=== PATIENT | female | born 1995 | race Asian ===

== ENCOUNTER → 2016-08-19 14:35 | Emergency (ER) | payer OTHER ==
[~2016-08-19 14:35] MED LIST: Ketorolac INJ* 30 MG/ML 1 ML VIAL IV ONE; NS 0.9% 1000 ML* 1,000 ML IV ONE
--- NOTE | 2016-08-19 15:58 | ED ---
Neck Pain - HPI Summary HPI Summary: Patient presents with two days of neck pain that began without known incident or trauma. She has had a cold for two weeks and developed an intermittent subjective fever two days ago as well. She took some cold medicine and a hot shower that relieved her symptoms but they returned later in the day. She went to a "formal" at [employer] last night and has been studying for finals, but finds her neck discomfort is getting in the way of her studying since she needs to lean her head forward while reading. The neck is point tender on the muscles of the left side at the base of the skull. She is able to move the neck in all directions without pain. She has had an intermittent headache she attributes to her neck pain. She has been eating, drinking, and sleeping at baseline. - History of Current Complaint Chief Complaint: EDNeckComplaint Stated Complaint: NECK AND BACK PAIN Time Seen by Provider: 08/19/16 15:05 Hx Obtained From: Patient Onset/Duration Of Injury/Symptoms: Days Mechanism Of Injury: No Known Trauma Timing: Constant Onset/Duration: Gradual Onset, Started days ago, Still Present Severity Initially: Mild Severity Currently: Moderate Pain Intensity: 5 Location: Discrete At: - left posterior neck Character: Aching Aggravating Factors: Movement Alleviating Factors: Heat Associated Signs & Symptoms: Positive: Fever - subjective, Headache - Risk Factors Meningitis Risk Factors: Negative - Allergies/Home Medications Allergies/Adverse Reactions: Allergies Allergy/AdvReac Type Severity Reaction Status Date / Time No Known Allergies Allergy Verified 08/19/16 14:50 PMH/Surg Hx/FS Hx/Imm Hx Previously Healthy: Yes Infectious Disease History: No Infectious Disease History: Denies: Traveled Outside the [place] in Last 30 Days - Family History Known Family History: Positive: None - Social History Occupation: Student Lives: Alone Alcohol Use: Weekly Substance Use Type: Reports: None Smoking Status (MU): Never Smoked Tobacco Review of Systems Positive: Chills. Negative: Fever - subjective Negative: Photophobia, Blurred Vision, Diplopia Negative: Sore Throat Negative: Chest Pain Negative: Cough Positive: no symptoms reported Positive: Myalgia - left posterior neck Negative: Bruising Positive: Headache - intermittent. Negative: Weakness, Paresthesia, Numbness All Other Systems Reviewed And Are Negative: Yes Physical Exam Triage Information Reviewed: Yes Vital Signs On Initial Exam: Initial Vitals Temp Pulse Resp BP Pulse Ox 98.7 F 110 14 110/70 100 08/19/16 14:45 08/19/16 14:45 08/19/16 14:45 08/19/16 14:45 08/19/16 14:45 Vital Signs Reviewed: Yes Appearance: Positive: Well-Appearing, No Pain Distress, Thin Skin: Positive: Warm, Skin Color Reflects Adequate Perfusion, Dry, Soft Head/Face: Positive: Normal Head/Face Inspection Eyes: Positive: EOMI, MARQUISE, Conjunctiva Clear ENT: Positive: Hearing grossly normal, Pharynx normal, TMs normal Neck: Positive: Supple, No Lymphadenopathy, Tenderness @ - TTP left posterior trapezius at base of skull Respiratory/Lung Sounds: Positive: Clear to Auscultation, Breath Sounds Present Cardiovascular: Positive: Tachycardia Abdomen Description: Positive: Nontender, Soft. Negative: CVA Tenderness (R), CVA Tenderness (L) Bowel Sounds: Positive: Present Musculoskeletal: Positive: Strength/ROM Intact - with discomfort with movement, Pain @ - TTP left posterior trapezius at base of skull. Negative: Edema Left, Edema Right Neurological: Positive: Sensory/Motor Intact, Alert, Oriented to Person Place, Time - no altered mental status, CN Intact II-III, NV Bundle Intact Distally, Normal Gait, Other - negative Kernig's or Brudzinski's signs. Negative: Babinski Left, Babinski Right, Cerebellar Dysfunction, Disoriented Psychiatric: Positive: Affect/Mood Appropriate AVPU Assessment: Alert Diagnostics - Vital Signs Vital Signs Temp Pulse Resp BP Pulse Ox 08/19/16 15:03 100.2 F 08/19/16 14:48 98.7 F 111 15 110/70 100 08/19/16 14:45 98.7 F 110 14 110/70 100 - Laboratory Result Diagrams: 08/19/16 15:40 08/19/16 15:40 Lab Statement: Any lab studies that have been ordered have been reviewed, and results considered in the medical decision making process. Re-Evaluation - Re-Evaluation First Eval Re-Evaluation Time: 17:15 Change: Improved - patient moving neck more easily with decreased discomfort Neck Course/Dx - Course Course Of Treatment: Patient's case was reviewed with Dr. Colon and the patient. She will follow-up with Hank or return to the emergency department if symptoms worsen. - Diagnoses Differential Dx/HQI/PQRI: Positive: Adenitis, Cervical Fracture, Dislocation, Dystonia, Meningitis, Sprain, Strain, Torticollis, Trauma Provider Diagnoses: Neck pain - Physician Notifications Discussed Care Of Patient With: Dr. Colon, ED attending. Discharge - Discharge Plan Condition: Stable Disposition: HOME Patient Education Materials: Acute Neck Pain (ED) Forms: *School Release [facility] - Additional Instructions: Please use Ibuprofen 600mg three times daily with meals beginning tomorrow evening for the next 3-5 days in combination with rest and heat for your neck. Follow-up with [facility] if you have concerns. Return to the emergency department if symptoms worsen with increased pain, temperature of 100.4 or higher, etc.
[2016-08-19 15:59] LABS: Hematocrit 40 % (35-47); Hemoglobin 13.3 g/dl (12.0-16.0); Mean Corpuscular HGB Conc 33 g/dl (31-36); Mean Corpuscular Hemoglobin 32 pg (27-31); Mean Corpuscular Volume 96 fL (80-97); Mean Platelet Volume 8 um3 (7.4-10.4); Red Blood Count 4.18 10^6/ul (4.0-5.4); Red Cell Distribution Width 13 % (10.5-15); White Blood Count 9.5 10^3/ul (3.5-10.8)
[2016-08-19 16:11] LABS: Albumin 4.3 g/dL (3.2-5.2); BUN/Creatinine Ratio 21.4 (8-20); C Reactive Protein 49.03 mg/L (< 5.00); Calcium 9.3 mg/dL (8.6-10.3); EGFR African American 177.5 (>60); Potassium 3.8 mmol/L (3.5-5.0); Total Bilirubin 0.4 mg/dL (0.2-1.0); Total Protein 7.3 g/dL (6.4-8.9)
[2016-08-19 16:26] LABS: Mono Internal Control QC Line Present
[2016-08-19 17:01] LABS: Urine Bacteria Absent (Absent); Urine Bilirubin Negative (Negative); Urine Glucose Negative (Negative); Urine Nitrite Negative (Negative)
[2016-08-19 17:19] VITALS: BP 104/72
== END | disposition home or self-care (01) ==
LOC: ED 14:35
DX: M54.2 Cervicalgia (principal); R50.9 Fever, unspecified; R51 Headache; M79.1 Myalgia
CPT/HCPCS: 36415; 80053; 81003; 81015; 85025; 86140; 86308; 87040; 87502; 87651; 96374; 99282; J1885

== ENCOUNTER 2018-02-04 20:14 | Inpatient (IN) | payer OTHER ==
[2018-02-04] MEDS ORDERED: NS 0.9% 1000 ML* 1,000 ML IV ONE (21:35)
[2018-02-04] MEDS ORDERED: Ondansetron INJ* 2 MG/ML VIAL IV ONE (21:36)
[2018-02-04] MEDS ORDERED: Morphine INJ* 4 MG/ML 1 ML SYRINGE (NEW SYRINGE VERSION) IV ONE (21:36)
[2018-02-04 21:44] LABS: ABS Basophils 0.1 10^3/ul (0-0.2); ABS Eosinophils 0.1 10^3/ul (0-0.6); ABS Lymphocytes 1.9 10^3/ul (1.0-4.8); ABS Monocytes 0.4 10^3/ul (0-0.8); ABS Neutrophils 9.1 10^3/ul (1.5-7.7); ABS Nucleated RBC 0 10^3/ul; Eosinophil % 1.1 % (0-6); Hematocrit 44 % (35-47); Hemoglobin 14.4 g/dl (12.0-16.0); Lymphocyte % 16.3 % (25-47); Mean Corpuscular HGB Conc 33 g/dl (31-36); Mean Corpuscular Hemoglobin 32 pg (27-31); Mean Corpuscular Volume 96 fL (80-97); Mean Platelet Volume 7.9 um3 (7.4-10.4); Nucleated Red Blood Cells % 0.1; Platelet Count 267 10^3/ul (150-450); Red Blood Count 4.56 10^6/ul (4.00-5.40); Red Cell Distribution Width 13 % (10.5-15); White Blood Count 11.6 10^3/ul (3.5-10.8)
[2018-02-04 21:53] LABS: INR 0.98 (0.77-1.02)
[2018-02-04 22:02] LABS: EGFR Non-African American 119.3 (>60)
--- NOTE | 2018-02-04 22:27 | ED ---
Abdominal Pain/Female - HPI Summary HPI Summary: A 22 y/o female presents to the ED c/o abd pain since earlier today, 2017. She denies vomiting, nausea and diarrhea. She states that she has not had an appendectomy and she does not drink alcohol, smoke or use drugs. - History of Current Complaint Chief Complaint: EDAbdPain Stated Complaint: ABD PAIN Time Seen by Provider: 02/04/18 21:16 Hx Obtained From: Patient Onset/Duration: Sudden Onset Timing: Constant Severity Initially: Moderate Severity Currently: Moderate Pain Intensity: 5 Pain Scale Used: 0-10 Numeric Location: Discrete At: RLQ, Umbilical Allergies/Adverse Reactions: Allergies Allergy/AdvReac Type Severity Reaction Status Date / Time No Known Allergies Allergy Verified 02/04/18 21:19 Home Medications: Home Medications NK [No Home Medications Reported] 02/04/18 [History Confirmed 02/04/18] PMH/Surg Hx/FS Hx/Imm Hx History: Denies: Hx Kidney Stones Sensory History: Denies: Hx Deafness Opthamlomology History: Denies: Hx Legally Blind - Immunization History Date of Tetanus Vaccine: utd Date of Influenza Vaccine: none Infectious Disease History: No Infectious Disease History: Denies: Traveled Outside the [place] in Last 30 Days - Family History Known Family History: Negative: Blood Disorder - Social History Alcohol Use: None Substance Use Type: Reports: None Smoking Status (MU): Never Smoked Tobacco Review of Systems Negative: Fever Positive: Abdominal Pain. Negative: Vomiting, Diarrhea, Nausea All Other Systems Reviewed And Are Negative: Yes Physical Exam - Summary Physical Exam Summary: Appearance: Well appearing, no pain distress Skin: warm, dry, reflects adequate perfusion Head/face: normal Eyes: EOMI, MARQUISE ENT: normal Neck: supple, non-tender Respiratory: CTA, breath sounds present Cardiovascular: RRR, pulses symmetrical Abdomen: Tenderness in the umbilical area and RLQ Bowel: present Musculoskeletal: normal, strength/ROM intact Neuro: normal, sensory motor intact, A&Ox3 Triage Information Reviewed: Yes Vital Signs On Initial Exam: Initial Vitals Temp Pulse Resp BP Pulse Ox 98.7 F 91 16 128/71 98 02/04/18 20:15 02/04/18 20:15 02/04/18 20:15 02/04/18 20:15 02/04/18 20:15 Vital Signs Reviewed: Yes Diagnostics - Vital Signs Vital Signs Temp Pulse Resp BP Pulse Ox 02/04/18 22:00 82 97 02/04/18 21:57 57 92/46 97 02/04/18 21:55 50 83/40 99 02/04/18 21:54 48 71/47 99 02/04/18 21:53 52 76/37 100 02/04/18 21:25 83 96 02/04/18 21:24 84 124/76 97 02/04/18 20:15 98.7 F 91 16 128/71 98 - Laboratory Lab Results: Lab Results 02/04/18 02/04/18 02/04/18 Range/Units 21:36 21:36 21:36 WBC 11.6 H (3.5-10.8) 10^3/ul RBC 4.56 (4.00-5.40) 10^6/ul Hgb 14.4 (12.0-16.0) g/dl Hct 44 (35-47) % MCV 96 (80-97) fL MCH 32 H (27-31) pg MCHC 33 (31-36) g/dl RDW 13 (10.5-15) % Plt Count 267 (150-450) 10^3/ul MPV 7.9 (7.4-10.4) um3 Neut % (Auto) 78.5 (38-83) % Lymph % (Auto) 16.3 L (25-47) % [place] % (Auto) 3.6 (0-7) % Eos % (Auto) 1.1 (0-6) % Baso % (Auto) 0.5 (0-2) % Absolute Neuts (auto) 9.1 H (1.5-7.7) 10^3/ul Absolute Lymphs (auto) 1.9 (1.0-4.8) 10^3/ul Absolute Monos (auto) 0.4 (0-0.8) 10^3/ul Absolute Eos (auto) 0.1 (0-0.6) 10^3/ul Absolute Basos (auto) 0.1 (0-0.2) 10^3/ul Absolute Nucleated RBC 0 10^3/ul Nucleated RBC % 0.1 INR (Anticoag Therapy) 0.98 (0.77-1.02) APTT 34.2 (26.0-36.3) seconds Sodium 139 (135-145) mmol/L Potassium 3.7 (3.5-5.0) mmol/L Chloride 107 (101-111) mmol/L Carbon Dioxide 27 (22-32) mmol/L Anion Gap 5 (2-11) mmol/L BUN 13 (6-24) mg/dL Creatinine 0.63 (0.51-0.95) mg/dL Est GFR ( Amer) 144.3 (>60) Est GFR (Non-Af Amer) 119.3 (>60) BUN/Creatinine Ratio 20.6 H (8-20) Glucose 104 H (70-100) mg/dL Calcium 9.2 (8.6-10.3) mg/dL Total Bilirubin 0.50 (0.2-1.0) mg/dL AST 14 (13-39) U/L ALT 11 (7-52) U/L Alkaline Phosphatase 48 (34-104) U/L Total Protein 7.1 (6.4-8.9) g/dL Albumin 4.3 (3.2-5.2) g/dL Globulin 2.8 (2-4) g/dL Albumin/Globulin Ratio 1.5 (1-3) Lipase Pending Beta HCG, Quant < 0.60 mIU/mL Result Diagrams: 02/04/18 21:36 02/04/18 21:36 Lab Statement: Any lab studies that have been ordered have been reviewed, and results considered in the medical decision making process. - CT Abdomen/Pelvis CT Interpretation Completed By: Radiologist - 1. Acute interstitial edematous pancreatitis. Modified CT severity index = 2. 2. Right ovarian cyst. ACR White Paper guidelines (Veliz, et. al. JACR 2013; 10(9):675-681) suggest that no follow-up is necessary. This report has been reviewed by the ED physician. Re-Evaluation - Re-Evaluation First Eval Re-Evaluation Time: 01:15 Change: Unchanged Comment: Explained to patient that she has pancreatitis. Abdominal Pain Fem Course/Dx - Course Course Of Treatment: 22 y/o female presents to the ED c/o abd pain since earlier today, 02/04/2018. Her PE revealed tenderness in the umbilical and RLQ region. Her abdomen/pelvis CT showed:1. Acute interstitial edematous pancreatitis. Modified CT severity index = 2. 2. Right ovarian cyst. ACR White Paper guidelines (Veliz, et. al. JACR 2013; 10(9):675-681) suggest that no follow-up is necessary. Dx: pancreatitis. She will be admitted to Dr. Sal. Pt is agreeable to this plan. - Diagnoses Differential Diagnosis: Positive: Appendicitis, Diverticulitis, Pancreatitis, Renal Colic Provider Diagnoses: Pancreatitis - Provider Notifications Discussed Care Of Patient With: Quiana Sal Time Discussed With Above Provider: 01:10 Instructed by Provider To: Admit As Inpatient Discharge - Sign-Out/Discharge Documenting (check all that apply): Patient Departure - Admit - Discharge Plan Condition: Fair Disposition: ADMITTED TO [facility] Referrals: [facility] [Primary Care Provider] - - Billing Disposition and Condition Condition: FAIR Disposition: Admitted to [facility] - Attestation Statements Document Initiated by Scribe: Yes Documenting Scribe: Chris Finley Provider For Whom Eileen is Documenting (Include Credential): Huseyin You MD Scribe Attestation: Chris Patten, scribed for Huseyin You MD on 02/05/18 at 0152. Scribe Documentation Reviewed: Yes Provider Attestation: The documentation as recorded by the Chris schafer accurately reflects the service I personally performed and the decisions made by , Huseyin You MD
[2018-02-05] MEDS ORDERED: Iohexol 300* (CONTRAST) 10 ML SDV IV ONE (00:01)
[2018-02-05 00:38] LABS: Urine Appearance Cloudy; Urine Blood Negative (Negative); Urine Color Yellow; Urine Ketones 1+ (Negative); Urine Protein Negative (Negative); Urine Specific Gravity 1.009 (1.010-1.030); Urine Urobilinogen Negative (Negative)
[2018-02-05] MEDS ORDERED: Ondansetron INJ* 2 MG/ML VIAL IV PRN (01:23)
[2018-02-05] MEDS ORDERED: Morphine INJ* 4 MG/ML 1 ML SYRINGE (NEW SYRINGE VERSION) IV PRN (01:23)
--- NOTE | 2018-02-05 01:31 | RAD ---
EXAM: CT Abdomen and Pelvis With Intravenous Contrast EXAM DATE/TIME: 02/05/2018 1:01 AM CLINICAL HISTORY: 22 years old, female; Pain; Abdominal pain; Generalized; Additional info: RT low quad tend R/O appendicitis TECHNIQUE: Axial computed tomography images of the abdomen and pelvis with intravenous contrast. All CT scans at this facility use at least one of these dose optimization techniques: automated exposure control; mA and/or kV adjustment per patient size (includes targeted exams where dose is matched to clinical indication); or iterative reconstruction. Coronal and sagittal reformatted images were created and reviewed. CONTRAST: 57 ml of OMNI administered intravenously. COMPARISON: No relevant prior studies available. FINDINGS: Lower thorax: No acute findings. ABDOMEN: Liver: Normal. No mass. Gallbladder and bile ducts: Normal. No calcified stones. No ductal dilation. Pancreas: Extensive peripancreatic edema extending into the lesser sac and along the bilateral pararenal fascia, left greater than right. No main ductal dilation. Normal parenchymal enhancement. No encapsulated peripancreatic fluid collections. Spleen: Normal. No splenomegaly. Adrenals: Normal. No mass. Kidneys and ureters: No renal solid cortical lesions, calculi, or pelvocaliectasis. Stomach and bowel: Incompletely distended grossly normal stomach. Normal caliber small bowel. No colonic masses or segmental wall thickening. Appendix: No evidence of appendicitis. PELVIS: Bladder: Thin-walled bladder with no focal nodularity, perivesicular stranding, or calcifications. Reproductive: Large right ovarian cyst measures 4.7 cm (series 2, image 65). Normal uterus and left ovary. ABDOMEN and PELVIS: Intraperitoneal space: Normal. No free air. No significant fluid collection. Bones/joints: The low curvature of the thoracolumbar spine. No fracture or dislocation. Joint spaces are preserved. No osseous lesions or erosions. Soft tissues: Normal. No hernia. Vasculature: Normal caliber aorta with no evidence of dissection or rupture. Patent IVC. Lymph nodes: Normal. No enlarged lymph nodes. IMPRESSION: 1. Acute interstitial edematous pancreatitis. Modified CT severity index = 2. 2. Right ovarian cyst. ACR White Paper guidelines (Jose Alfredo, et. al. JACR 2013; 10(9):675-681) suggest that no follow-up is necessary. To contact [facility] with a general question: [facility] - [phone] For direct physician to physician contact: Physician Hotline - [phone] [facility] (ad Facility ID #[id number])
[2018-02-05] MEDS: Morphine VIAL* 4 MG/ML VIAL (1 ml vial) IV PRN ×2 (03:21→18:29)
--- NOTE | 2018-02-05 03:52 | HP ---
CC: [facility] * HISTORY AND PHYSICAL: DATE OF ADMISSION: 02/05/18 PRIMARY CARE PROVIDER: [facility]. CHIEF COMPLAINT: Epigastric pain. HISTORY OF PRESENT ILLNESS: Ms. Diggs is a 22-year-old [place] student who presents to the emergency room with complaints of relatively sudden onset of epigastric pain. The patient states that in general, she has been in her normal state of health through the morning. She states that she took a couple bites of her lunch and following this, she developed fairly significant epigastric pain. The patient states that she has not really been nauseous with this. She rates the pain to be 5 to 6/10 after having pain medications in the emergency room. She describes the pain as being sharp in nature. It does not radiate. The patient does state that she has had symptoms similar to this in the past and had been diagnosed with pancreatitis in the past. She does not have any further information regarding this. She does state that she has not had any pain with eating any fatty foods. She does not take any medication. She does not use any herbal supplements or vitamins. She does admit to drinking alcohol this past Saturday. When I asked her about this, she is quite hesitant to answer this question. She states that she drank a small amount and does not elaborate any further. PAST MEDICAL HISTORY: None. PAST SURGICAL HISTORY: None. MEDICATIONS: None. ALLERGIES: None. FAMILY HISTORY: Mom and dad are both 50 and healthy. SOCIAL HISTORY: The patient does not smoke. She drinks alcohol on occasion. She is a [place] student studying [employer]. She is not . She has no children. She indicates that her mom would be her healthcare proxy. She is from [place] originally. REVIEW OF SYSTEMS: A complete 11-system review of systems is obtained. Pertinent positives and negatives are as per HPI and otherwise negative. PHYSICAL EXAMINATION GENERAL: The patient is a well-developed, thin young female, seen sitting up in the stretcher, in no acute distress. VITAL SIGNS: Blood pressure 126/83, pulse 97, respirations 18, temp 98.7, O2 sat 100% on room air. HEENT: Pupils are equal and round. Extraocular muscles are intact. Oropharynx is clear. Oral mucosa is moist. There is no submandibular, cervical , or supraclavicular adenopathy. Thyroid is not enlarged. No thyroid nodules are noted. PULMONARY: Lungs are clear to auscultation bilaterally. CARDIAC: Normal S1, S2. Heart rate is slightly tachycardic, but regular. There is no lower extremity edema. ABDOMEN: Bowel sounds are present. Abdomen is soft, nondistended. She is mildly tender to palpation in the epigastrium. MUSCULOSKELETAL: There is no cyanosis or clubbing of the digits. There is full active range of motion of all 4 extremities. NEURO: Cranial nerves II through XII are grossly intact. Sensation is intact to light touch throughout. Strength is 5/5 and symmetric to both upper and lower extremities bilaterally. SKIN: Warm and dry. There are no rashes. PSYCH: The patient is alert. She is oriented x3. Affect appears appropriate. LABORATORY DATA/DIAGNOSTIC STUDIES: WBC 11.6, hemoglobin 14.4, hematocrit 44, platelets 267. Sodium 139, potassium 3.7, chloride 107, CO2 27, BUN 13, creatinine 0.63, glucose 104. Calcium 9.2, albumin 4.3, AST 14, ALT 11, alk phos 48, bilirubin 0.5. INR 0.98. Lipase 5906. CT abdomen and pelvis, acute interstitial edematous pancreatitis. Right ovarian cyst. ASSESSMENT AND PLAN: Ms. Diggs is a 22-year-old [place] student who has no significant past medical history who presents to the emergency room with sudden onset of moderately severe epigastric pain around the lunch on the day prior to admission. 1. Pancreatitis. Because the pancreatitis is not completely clear, I do question if the patient has been 100% truthful about her alcohol intake as she seems somewhat hesitant to answer this question for me. I believe alcohol intake is high on the differential for the cause of her pancreatitis. She is not on any medications and denies use of any herbal supplements. Perhaps, her pancreatitis could be due to infectious source such as a virus, but this seems less likely. The patient does report having been diagnosed with pancreatitis in the past. Perhaps, she has a genetic risk for developing pancreatitis. I do not believe gallstones as a cause because CT scan did not reveal any evidence of sludge, stones, or bile duct dilation. Triglyceride level is pending at this time. The patient will be admitted and started on normal saline at 125 mL per hour. Her pain at this point is not so severe that she does not want to try to eat. We will place her on a clear liquid diet for now. If eating the clears exacerbates the pain, this will need to be backed down. The patient will have morphine available for pain and Zofran for nausea. 2. DVT prophylaxis. According to the Adult Thrombosis Prophylaxis Risk Factor Assessment Guide, the patient has a total risk factor score of 0, making her low risk. Ambulation will be utilized as DVT prophylaxis. 3. Code status is full. TIME SPENT: 50 minutes were spent admitting this patient. [id number]/[facility] #: [id number] STEPHANIE
[2018-02-05] MEDS ORDERED: PROCHLORPERAZINE INJ 5 MG/ML 2 ML VIAL IV PRN (10:12)
--- NOTE | 2018-02-05 10:19 | PN ---
Subjective Date of Service: 02/05/18 Interval History: Patient resting in bed. Reports pain in epigastric region is tolerable with pain medication. Reports she is afraid to move too much or take anything by mouth as it might increase pain. Per nurse patient vomited x2 and zofran was given with little relief. Compazine ordered. 12 point ROS completed and all other negative except above mentioned. Family History: Unchanged from Admission Social History: Unchanged from Admission Past Medical History: Unchanged from Admission Objective Active Medications: Sodium Chloride (Ns 0.9% 1000 Ml*) 1,000 mls @ 125 mls/hr IV PER RATE BUKC Morphine Sulfate (Morphine Vial*) 2 mg IV Q3H PRN PRN Reason: PAIN Last Admin: 02/05/18 03:21 Dose: 2 mg Ondansetron HCl (Zofran Inj*) 4 mg IV Q6H PRN PRN Reason: NAUSEA Last Admin: 02/05/18 09:26 Dose: 4 mg Prochlorperazine Edisylate (Compazine Inj*) 2.5 mg IV Q6H PRN PRN Reason: NAUSEA/VOMITING Vital Signs - 8 hr 02/05/18 02/05/18 02/05/18 02:35 03:21 04:15 Temperature 97.9 F Pulse Rate 87 Respiratory 18 18 16 Rate Blood Pressure 119/72 (mmHg) O2 Sat by Pulse 98 Oximetry 02/05/18 02/05/18 02/05/18 07:58 08:00 08:23 Temperature Pulse Rate 88 Respiratory 16 16 Rate Blood Pressure 118/66 (mmHg) O2 Sat by Pulse 97 Oximetry 02/05/18 10:04 Temperature 98.6 F Pulse Rate 88 Respiratory 16 Rate Blood Pressure 119/65 (mmHg) O2 Sat by Pulse 97 Oximetry Oxygen Devices in Use Now: None Appearance: Cooperative, NAD Eyes: No Scleral Icterus Ears/Nose/Mouth/Throat: Clear Oropharnyx, Mucous Membranes Moist Neck: NL Appearance and Movements; NL JVP Respiratory: Symmetrical Chest Expansion and Respiratory Effort, Clear to Auscultation Cardiovascular: NL Sounds; No Murmurs; No JVD, RRR, No Edema Abdominal: - - Tenderness to epigastric region. No distention. BS present x 4 Lymphatic: No Cervical Adenopathy Extremities: No Edema, No Clubbing, Cyanosis Skin: No Rash or Ulcers Neurological: Alert and Oriented x 3 Nutrition: - - Clear as tolerated. Result Diagrams: 02/04/18 21:36 02/04/18 21:36 Additional Lab and Data: RUN DATE: 02/05/18 [facility] LAB LIVE PAGE 1 Laboratory Results - last 24 hr 02/04/18 02/04/18 02/04/18 21:36 21:36 21:36 WBC 11.6 H RBC 4.56 Hgb 14.4 Hct 44 MCV 96 MCH 32 H MCHC 33 RDW 13 Plt Count 267 MPV 7.9 Neut % (Auto) 78.5 Lymph % (Auto) 16.3 L [place] % (Auto) 3.6 Eos % (Auto) 1.1 Baso % (Auto) 0.5 Absolute Neuts (auto) 9.1 H Absolute Lymphs (auto) 1.9 Absolute Monos (auto) 0.4 Absolute Eos (auto) 0.1 Absolute Basos (auto) 0.1 Absolute Nucleated RBC 0 Nucleated RBC % 0.1 INR (Anticoag Therapy) 0.98 APTT 34.2 Sodium 139 Potassium 3.7 Chloride 107 Carbon Dioxide 27 Anion Gap 5 BUN 13 Creatinine 0.63 Est GFR ( Amer) 144.3 Est GFR (Non-Af Amer) 119.3 BUN/Creatinine Ratio 20.6 H Glucose 104 H Calcium 9.2 Total Bilirubin 0.50 AST 14 ALT 11 Alkaline Phosphatase 48 Total Protein 7.1 Albumin 4.3 Globulin 2.8 Albumin/Globulin Ratio 1.5 Triglycerides Cholesterol LDL Cholesterol HDL Cholesterol Lipase 5906 H Beta HCG, Quant < 0.60 Urine Color Urine Appearance Urine pH Ur Specific [place] Urine Protein Urine Ketones Urine Blood Urine Nitrate Urine Bilirubin Urine Urobilinogen Ur Leukocyte Esterase Urine Glucose 02/05/18 02/05/18 00:23 01:18 WBC RBC Hgb Hct MCV MCH MCHC RDW Plt Count MPV Neut % (Auto) Lymph % (Auto) [place] % (Auto) Eos % (Auto) Baso % (Auto) Absolute Neuts (auto) Absolute Lymphs (auto) Absolute Monos (auto) Absolute Eos (auto) Absolute Basos (auto) Absolute Nucleated RBC Nucleated RBC % INR (Anticoag Therapy) APTT Sodium Potassium Chloride Carbon Dioxide Anion Gap BUN Creatinine Est GFR ( Amer) Est GFR (Non-Af Amer) BUN/Creatinine Ratio Glucose Calcium Total Bilirubin AST ALT Alkaline Phosphatase Total Protein Albumin Globulin Albumin/Globulin Ratio Triglycerides 51 Cholesterol 153 LDL Cholesterol 78 HDL Cholesterol 65.3 Lipase Beta HCG, Quant Urine Color Yellow Urine Appearance Cloudy Urine pH 6.0 Ur Specific [place] 1.009 L Urine Protein Negative Urine Ketones 1+ A Urine Blood Negative Urine Nitrate Negative Urine Bilirubin Negative Urine Urobilinogen Negative Ur Leukocyte Esterase Negative Urine Glucose Negative Microbiology and Other Data: . Diagnostic Imaging: EXAM: CT Abdomen and Pelvis With Intravenous Contrast EXAM DATE/TIME: 02/05/2018 1:01 AM CLINICAL HISTORY: 22 years old, female; Pain; Abdominal pain; Generalized; Additional info: RT low quad tend R/O appendicitis TECHNIQUE: Axial computed tomography images of the abdomen and pelvis with intravenous contrast. All CT scans at this facility use at least one of these dose optimization techniques: automated exposure control; mA and/or kV adjustment per patient size (includes targeted exams where dose is matched to clinical indication); or iterative reconstruction. Coronal and sagittal reformatted images were created and reviewed. CONTRAST: 57 ml of OMNI administered intravenously. COMPARISON: No relevant prior studies available. FINDINGS: Lower thorax: No acute findings. ABDOMEN: Liver: Normal. No mass. Gallbladder and bile ducts: Normal. No calcified stones. No ductal dilation. Pancreas: Extensive peripancreatic edema extending into the lesser sac and along the bilateral pararenal fascia, left greater than right. No main ductal dilation. Normal parenchymal enhancement. No encapsulated peripancreatic fluid collections. Spleen: Normal. No splenomegaly. Adrenals: Normal. No mass. Kidneys and ureters: No renal solid cortical lesions, calculi, or pelvocaliectasis. Stomach and bowel: Incompletely distended grossly normal stomach. Normal caliber small bowel. No colonic masses or segmental wall thickening. Appendix: No evidence of appendicitis. PELVIS: Bladder: Thin-walled bladder with no focal nodularity, perivesicular stranding, or calcifications. Reproductive: Large right ovarian cyst measures 4.7 cm (series 2, image 65). Normal uterus and left ovary. ABDOMEN and PELVIS: Intraperitoneal space: Normal. No free air. No significant fluid collection. Bones/joints: The low curvature of the thoracolumbar spine. No fracture or dislocation. Joint spaces are preserved. No osseous lesions or erosions. Soft tissues: Normal. No hernia. Vasculature: Normal caliber aorta with no evidence of dissection or rupture. Patent IVC. Lymph nodes: Normal. No enlarged lymph nodes. IMPRESSION: 1. Acute interstitial edematous pancreatitis. Modified CT severity index = 2. 2. Right ovarian cyst. ACR White Paper guidelines (Jose Alfredo, et. al. JACR 2013; 10(9):675-681) suggest that no follow-up is necessary. Assess/Plan/Problems-Billing Assessment: 22 F presented to ED with severe epigastric pain, found to have pancreatitis, hx of pancreatitis 10 yrs ago. - Patient Problems (1) Pancreatitis Comment: - Lipase 5906. Repeat at 1500 today - Triglycerides wnl. - Reports ETOH use is approx once weekly and approx 2 beers OR 2 glasses of champange. Denies binge drinking - Reports pancreatitis approx 10 yrs ago with unknown cause. - Remain on clear diet as tolerated. - Cont IV fluids - I have asked for a consult by GI as there is no clear cause for the pancreatitis and she reports similar episode 10 yrs ago (when she was approx 12 yrs old). I appreciate their input (2) Nausea & vomiting Comment: - Reports nausea and vomiting this morning. - Has not tried anything by mouth - Nurse reports Zofran was given with little relief. - Compazine ordered. (3) Leukocytosis Comment: - WBC 11.6 - Afebrile - Recheck at 1500 today (4) Right ovarian cyst Comment: - Incidental right ovarian cysts on CT that does not warrent follow up per radiologist (5) DVT (deep venous thrombosis) Comment: - Low risk - Encourage ambulation (6) Full code status Comment: - Full Code Status and Disposition: OBV. Repeat labs. GI consulted. Attending: Elpidio Lyn
[2018-02-05] MEDS: NS 0.9% 1000 ML* 1,000 ML IV SCH ×2 (11:19→20:02)
[2018-02-05 15:14] LABS: Hematocrit 38 % (35-47); Hemoglobin 12.7 g/dl (12.0-16.0); Mean Corpuscular HGB Conc 34 g/dl (31-36); Mean Corpuscular Hemoglobin 32 pg (27-31); Mean Corpuscular Volume 96 fL (80-97); Platelet Count 230 10^3/ul (150-450); Red Blood Count 3.93 10^6/ul (4.00-5.40); Red Cell Distribution Width 13 % (10.5-15); White Blood Count 11.1 10^3/ul (3.5-10.8)
[2018-02-05 15:43] LABS: EGFR Non-African American 213.8 (>60)
[2018-02-05] MEDS ORDERED: Acetaminophen TAB* 325 MG PO PRN (18:17)
[2018-02-05] MEDS ORDERED: Acetaminophen TAB* 325 MG ONE (18:20)
--- NOTE | 2018-02-05 22:40 | CONS ---
GASTROENTEROLOGY CONSULT NOTE: DATE OF CONSULT: 02/05/18 REASON FOR CONSULT: Pancreatitis. HISTORY OF PRESENT ILLNESS: Ms. 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 Ms. Diggs reports that she was well until yesterday w hen she developed acute onset epigastric pain. She had an episode of nausea and vomiting earlier this morning but has otherwise been experiencing intermittent nausea. She denies any radiation of the epigastric pain to her back or lower abdomen. She has not noticed any change in her bowel movements recently. She presented to the ER for evaluation. Evaluation notable for normal vital signs, mild leukocytosis, elevated lipase to 5906. LFTs normal. An abdominopelvic CT scan demonstrated acute interstitial edematous pancreatitis. The patient was admitted to Medicine and GI consulted. On interview, Ms. Diggs states that she feels fairly well when she is lying flat. When she tries to move or eat, she feels more nausea and epigastric pain. She only reports drinking "a little bit" of alcohol on Saturday. She denies heavy or frequent alcohol use otherwise. She is on no medications and denies any herbal supplement use. She was told 10 years ago or so in [place] that she initially had pancreatitis. She says that she was misdiagnosed and they felt afterwards that it was not pancreatitis. The patient was not able to relay any additional details regarding this episode. The patient denies any recent sick contacts or recent viral illnesses. The patient denies any family history of pancreatic disease or pancreatitis. She denies any episodes of abdominal pain that would suggest biliary colic. PAST MEDICAL HISTORY: None. PAST SURGICAL HISTORY: None. MEDICATIONS: None. ALLERGIES: No known allergies. FAMILY HISTORY: No known GI or liver disease. SOCIAL HISTORY: The patient is a senior at [employer]. She is studying [employer]. She denies any smoking or drug use. She drinks alcohol occasionally, although she does not provide additional detail re: quantity. She is originally from [place]. REVIEW OF SYSTEMS: A 12-point review of systems was reviewed and negative except as above. PHYSICAL EXAM: Vital Signs: Reviewed and unremarkable. Afebrile, heart rate 88, blood pressure 119/65, 97% on room air. General: Tired appearing young woman, in no acute distress, lying in bed. HEENT: Mucous membranes are moist. Cardiovascular: Regular rate and rhythm. No murmurs. Pulm: Breathing comfortably. Abdomen: Positive bowel sounds. Soft, minimally to mildly tender in the epigastrium. No distention. No rebound tenderness or guarding. Extremities: Warm and well perfused. No edema. DIAGNOSTIC STUDIES/LAB DATA: White count 11.6, hematocrit 44, platelet count 267. INR 0.98. Comprehensive panel reviewed. BUN 13, creatinine 0.63, calcium 9.2. AST 14, ALT 11, bilirubin 0.5. Albumin 4.3, lipase 5906. Beta hCG negative. Triglycerides 51. Studies: CT abdomen and pelvis reviewed. Liver normal. Gallbladder normal without ductal dilation. Pancreas with extensive peripancreatic edema. Normal pancreatic enhancement. No encapsulated peripancreatic fluid collection. IMPRESSION AND RECOMMENDATIONS: Ms. Gabbi Diggs is a 22-year-old woman without significant past medical history, who presents with acute pancreatitis of unclear etiology. Workup so far has included a normal triglyceride level and normal calcium level. The patient denies significant alcohol use, although she reports drinking some alcohol raising possibility that she is minimizing use. The patient does mention that 10 years or so ago in [place] she was told that she had pancreatitis. She tells me that this was a misdiagnosis and she was later told that she did not have pancreatitis. She is not able to provide me any additional detail regarding this medical situation. She denies any family history to suggest familial pancreatitis. She is on no medications or herbal supplements that might trigger pancreatitis. At this point, pancreatitis is likely idiopathic vs alcohol-related vs gallstone/microlithiasis (although the patient's LFTs are normal). Recommend the patient continue with IV fluids and clear diet. She should receive symptomatic management per primary team. Hopefully, her pain will continue to improve and her diet can slowly be advanced over the next day or two. Regarding evaluation for etiology, I would recommend obtaining an abdominal ultrasound. This is a more sensitive test for gallstones than a CT abdomen and pelvis. I am not clear how to interpret her episode 10 years ago in relation to the current episode of pancreatitis. The patient states that she was misdiagnosed with pancreatitis in the past, so it is not clear that this is actually a recurrence. Records to review would be ideal, although I suspect these may not be available as this episode was over a decade ago in [place]. We could consider an endoscopic ultrasound versus an MRCP in the outpatient setting to further evaluate biliary system and pancreas. Could also discuss pursuing genetic testing to evaluate for hereditary causes of pancreatitis in outpatient setting. Thank you very much for this consult. [id number]/[facility] #: [id number] STEPHANIE
[2018-02-06] MEDS: NS 0.9% 1000 ML* 1,000 ML IV SCH ×2 (03:45→20:25)
[2018-02-06 06:07] LABS: ABS Basophils 0 10^3/ul (0-0.2); ABS Eosinophils 0.1 10^3/ul (0-0.6); ABS Lymphocytes 1.7 10^3/ul (1.0-4.8); ABS Monocytes 0.6 10^3/ul (0-0.8); ABS Neutrophils 8.8 10^3/ul (1.5-7.7); ABS Nucleated RBC 0 10^3/ul; Eosinophil % 1.1 % (0-6); Hematocrit 36 % (35-47); Hemoglobin 11.9 g/dl (12.0-16.0); Lymphocyte % 15.2 % (25-47); Mean Corpuscular HGB Conc 33 g/dl (31-36); Mean Corpuscular Hemoglobin 32 pg (27-31); Mean Corpuscular Volume 96 fL (80-97); Mean Platelet Volume 7.9 um3 (7.4-10.4); Nucleated Red Blood Cells % 0.1; Platelet Count 219 10^3/ul (150-450); Red Blood Count 3.76 10^6/ul (4.00-5.40); Red Cell Distribution Width 13 % (10.5-15); White Blood Count 11.3 10^3/ul (3.5-10.8)
[2018-02-06] MEDS: Morphine VIAL* 4 MG/ML VIAL (1 ml vial) IV PRN (09:34)
--- NOTE | 2018-02-06 10:45 | RAD ---
HISTORY: Abdominal pain COMPARISONS: CT abdomen pelvis February 05, 2019 TECHNIQUE: Multiple transverse and longitudinal ultrasound images were obtained of the right upper quadrant. FINDINGS: LIVER: The liver is normal in dimensions and echogenicity. Normal hepatic and portal venous blood flow is duplicated with color flow imaging. There is no gross intrahepatic biliary duct dilatation. GALLBLADDER AND EXTRAHEPATIC BILIARY DUCT: Adherent to the wall the gallbladder is an immobile 3 mm echogenic focus exhibiting no vascularity most consistent with a gallbladder polyp. Otherwise the gallbladder is normal in appearance without intraluminal stones or other soft tissue masses. There is no pericholecystic fluid or gallbladder wall thickening. The common bile duct measures a maximum diameter of 4 mm. PANCREAS: The visualized portions of the pancreas exhibit heterogeneity. There are no large suspicious mass is visualized. There is trace peripancreatic fluid. RIGHT KIDNEY: The right kidney is normal in size, morphology and echogenicity. AORTA AND IVC: The visualized portions are normal in appearance and not pathologically dilated. IMPRESSION: 1. SONOGRAPHIC FINDINGS ARE CONSISTENT WITH PANCREATITIS SIMILAR TO THE PREVIOUS DAY CT EXAMINATION. 2. INCIDENTALLY NOTED IS A GALLBLADDER POLYP.
--- NOTE | 2018-02-06 11:34 | PN ---
Subjective Date of Service: 02/06/18 Interval History: Resting in bed. Reports pain is a "4 to 5" in epigastric region. Reports pain is improved since admission, but is about the same as yesterday. Reports it is a little more constant today as yesterday it was only with movement. Reports she tried sips of broth last night but that increased pain. Denies nausea and vomiting today. 12 ROS completed and all others negative except above mentioned. Discussed GI consult and recommendations with patient who stated understanding. Family History: Unchanged from Admission Social History: Unchanged from Admission Past Medical History: Unchanged from Admission Objective Active Medications: Acetaminophen (Tylenol Tab*) 650 mg PO Q6H PRN PRN Reason: pain/fever Last Admin: 02/05/18 18:22 Dose: 650 mg Sodium Chloride (Ns 0.9% 1000 Ml*) 1,000 mls @ 125 mls/hr IV PER RATE BUCK Last Admin: 02/06/18 03:45 Dose: 125 mls/hr Morphine Sulfate (Morphine Vial*) 2 mg IV Q3H PRN PRN Reason: PAIN Last Admin: 02/06/18 09:34 Dose: 2 mg Ondansetron HCl (Zofran Inj*) 4 mg IV Q6H PRN PRN Reason: NAUSEA Last Admin: 02/05/18 09:26 Dose: 4 mg Prochlorperazine Edisylate (Compazine Inj*) 2.5 mg IV Q6H PRN PRN Reason: NAUSEA/VOMITING Vital Signs - 8 hr 02/06/18 02/06/18 02/06/18 07:15 07:27 09:34 Temperature 97.5 F Pulse Rate 95 Respiratory 16 18 Rate Blood Pressure 118/68 (mmHg) O2 Sat by Pulse 99 Oximetry Oxygen Devices in Use Now: None Appearance: Well appearing. Eyes: No Scleral Icterus Ears/Nose/Mouth/Throat: Clear Oropharnyx, Mucous Membranes Moist Neck: NL Appearance and Movements; NL JVP Respiratory: Symmetrical Chest Expansion and Respiratory Effort, Clear to Auscultation Cardiovascular: NL Sounds; No Murmurs; No JVD, RRR, No Edema Abdominal: - - BS x4. Tender in epigastric. Soft and nondistended Lymphatic: No Cervical Adenopathy Extremities: No Edema Skin: No Rash or Ulcers Neurological: Alert and Oriented x 3 Nutrition: - - Clear diet. Will advance as tolerated Result Diagrams: 02/06/18 05:40 02/05/18 14:54 Additional Lab and Data: Abnormal Lab Results 02/05/18 02/05/18 02/06/18 14:54 14:54 05:40 WBC 11.1 H 11.3 H RBC 3.93 L 3.76 L Hgb 12.7 11.9 L Hct 38 36 MCV 96 96 MCH 32 H 32 H MCHC 34 33 RDW 13 13 Plt Count 230 219 MPV 8.0 7.9 Neut % (Auto) 78.1 Lymph % (Auto) 15.2 L [place] % (Auto) 5.4 Eos % (Auto) 1.1 Baso % (Auto) 0.2 Absolute Neuts (auto) 8.8 H Absolute Lymphs (auto) 1.7 Absolute Monos (auto) 0.6 Absolute Eos (auto) 0.1 Absolute Basos (auto) 0 Absolute Nucleated RBC 0 Nucleated RBC % 0.1 Sodium 137 Potassium 3.8 Chloride 110 Carbon Dioxide 20 L Anion Gap 7 BUN 7 Creatinine 0.38 L Est GFR ( Amer) 258.7 Est GFR (Non-Af Amer) 213.8 BUN/Creatinine Ratio 18.4 Glucose 90 Calcium 8.2 L Lipase 4828 H 02/06/18 05:40 WBC RBC Hgb Hct MCV MCH MCHC RDW Plt Count MPV Neut % (Auto) Lymph % (Auto) [place] % (Auto) Eos % (Auto) Baso % (Auto) Absolute Neuts (auto) Absolute Lymphs (auto) Absolute Monos (auto) Absolute Eos (auto) Absolute Basos (auto) Absolute Nucleated RBC Nucleated RBC % Sodium Potassium Chloride Carbon Dioxide Anion Gap BUN Creatinine Est GFR ( Amer) Est GFR (Non-Af Amer) BUN/Creatinine Ratio Glucose Calcium Lipase 1349 H Microbiology and Other Data: . Diagnostic Imaging: COMPARISONS: CT abdomen pelvis February 05, 2019 TECHNIQUE: Multiple transverse and longitudinal ultrasound images were obtained of the right upper quadrant. FINDINGS: LIVER: The liver is normal in dimensions and echogenicity. Normal hepatic and portal venous blood flow is duplicated with color flow imaging. There is no gross intrahepatic biliary duct dilatation. GALLBLADDER AND EXTRAHEPATIC BILIARY DUCT: Adherent to the wall the gallbladder is an immobile 3 mm echogenic focus exhibiting no vascularity most consistent with a gallbladder polyp. Otherwise the gallbladder is normal in appearance without intraluminal stones or other soft tissue masses. There is no pericholecystic fluid or gallbladder wall thickening. The common bile duct measures a maximum diameter of 4 mm. PANCREAS: The visualized portions of the pancreas exhibit heterogeneity. There are no large suspicious mass is visualized. There is trace peripancreatic fluid. RIGHT KIDNEY: The right kidney is normal in size, morphology and echogenicity. AORTA AND IVC: The visualized portions are normal in appearance and not pathologically dilated. IMPRESSION: 1. SONOGRAPHIC FINDINGS ARE CONSISTENT WITH PANCREATITIS SIMILAR TO THE PREVIOUS DAY CT EXAMINATION. 2. INCIDENTALLY NOTED IS A GALLBLADDER POLYP. Assess/Plan/Problems-Billing Assessment: 22 F presented to ED with severe epigastric pain and found to have pancreatitis - Patient Problems (1) Pancreatitis Comment: - Lipase 1349 today - Remain on clear diet and advance as tolerated. - Cont IV fluids and IV pain medication - GI consulted and I very much appreciate their input. GI suspects ideopathic vs alcohol vs gall stones in etiology. - Abd ultrasound obtained for further revaluation and report consistent with pancreatits and incidental gallbladder polyp - GI also recommended outpt follow up for possible endoscopic ultrasound versus MRCP and possible gentic testing. (2) Nausea & vomiting Comment: - Denies nausea and vomiting this morning. - Continue Zofran and Compazine as needed (3) Leukocytosis Comment: - WBC 11.3 - Afebrile - Recheck tomorrow (4) Right ovarian cyst Comment: - Incidental right ovarian cysts on CT that does not warrent follow up per radiologist (5) DVT (deep venous thrombosis) Comment: - Low risk - Encourage ambulation (6) Full code status Comment: - Full Code Status and Disposition: Inpatient. Continue supportive care and slowly advancing diet as tolerated. Attending: Elpidio Lyn
[2018-02-07] MEDS: NS 0.9% 1000 ML* 1,000 ML IV SCH (04:37)
[2018-02-07 06:00] LABS: ABS Basophils 0 10^3/ul (0-0.2); ABS Eosinophils 0.2 10^3/ul (0-0.6); ABS Lymphocytes 2.3 10^3/ul (1.0-4.8); ABS Monocytes 0.5 10^3/ul (0-0.8); ABS Neutrophils 5.8 10^3/ul (1.5-7.7); ABS Nucleated RBC 0 10^3/ul; Eosinophil % 2.4 % (0-6); Hematocrit 33 % (35-47); Hemoglobin 11.3 g/dl (12.0-16.0); Lymphocyte % 25.6 % (25-47); Mean Corpuscular HGB Conc 34 g/dl (31-36); Mean Corpuscular Hemoglobin 33 pg (27-31); Mean Corpuscular Volume 95 fL (80-97); Nucleated Red Blood Cells % 0.2; Platelet Count 218 10^3/ul (150-450); Red Blood Count 3.48 10^6/ul (4.00-5.40); Red Cell Distribution Width 12 % (10.5-15); White Blood Count 8.8 10^3/ul (3.5-10.8)
[2018-02-07 06:23] LABS: EGFR Non-African American 235.1 (>60)
[2018-02-07 12:58] VITALS: BP 114/67
--- NOTE | 2018-02-07 14:49 | PN ---
School Excuse - School Note School Note: Patient:VALDO ARECHIGA Date:02/07/18 Time: 1442 February 16, 2018 To whom it may concern, This is to certify that Ms. Arechiga has been admitted in our facility on 01/26/18. She will be discharged today improved with the caveat that she has a few outpatient follow-up visits with her physicians. She should be able to resume her routine duties on 02/10/18. Sincerely, 02/07/18 Tadeo Lakhani MD Date
--- NOTE | 2018-02-08 04:27 | DS ---
CC: Dr. Sal; Dr. You; Dr. Cornelia Dhaliwal DISCHARGE SUMMARY: DATE OF ADMISSION: DATE OF DISCHARGE: DISCHARGE DIAGNOSES: As follows: 1. Acute pancreatitis. 2. Incidental finding of right ovarian cyst; per radiologist no followup is warranted. DISCHARGE MEDICATIONS: As follows: Tylenol 650 mg p.o. q.6 p.r.n. HISTORY OF PRESENT ILLNESS/HOSPITAL COURSE: The patient is a 22-year-old - Pakistani lady, a student of [employer], who presents to the emergency room with complaints of relatively sudden onset epigastric pain and on further evaluation , she was found to have pancreatitis with lipase level initially up to 5,906 and on discharge was 132. Prior to discharge, her diet was advanced to a low- residue diet, low-fat, which she has tolerated well without any nausea, abdominal pain, nor vomiting and hence, we will discharge her as improved to home. The patient was ruled out for any gallbladder stone causes of pancreatitis given her LFTs are normal as well as CT of the abdomen and pelvis was done, which did not reveal any stones. She had a fasting lipid level with normal triglycerides at 51 and she also denies any history of alcohol abuse nor binge drinking; hence, it is unclear of what precipitated her acute pancreatitis. She was advised to continue with her low- residue, low-fat diet and only advance her diet as she can tolerate. She had been advised to follow up and/or call her PCP within 3 days postdischarge. If her symptoms resume or develop new ones, or feel unwell for any reason, she was advised to call her PCP first and if her PCP cannot entertain her due to scheduling issues alone to call [facility] if her issue is considered nonemergent. She was advised to call my office regarding any questions, concerns, or further clarifications regarding her discharge plans and/or prescriptions and to take her medications as prescribed. ADDENDUM: I received a call from Dr. Santo. He would prefer the patient F/U in two weeks with Dr. Islas for possible EUS. He mentioned he will be in touch with patient to inform her of this F/U. REVIEW OF SYSTEMS: The patient currently denies any headaches, dizziness, fevers, chills, nausea, vomiting, chest pain, shortness of breath, increased cough nor sputum production, abdominal pain, diarrhea, constipation, pain and/ or increased frequency in urination, myalgias or arthralgias, throat pain or new skin lesions. The rest of the 14-point review of systems are otherwise unremarkable. PHYSICAL EXAMINATION: Shows the most recent vital signs of records with blood pressure of 114/67, 98.1 degrees Fahrenheit, 87 beats per minute heart rate, 16 per minute respiratory rate, saturating at 99% room air. General Appearance: The patient is awake, alert, and oriented x3, not in acute distress. HEENT: Normocephalic, atraumatic. PERRLA. Extraocular muscles intact. Negative for icterus. Moist oral mucosa. Negative throat erythema. Neck: Soft, supple with no cervical lymphadenopathy. No JVD. Heart: S1, S2 within normal limits. Regular rate and rhythm. No murmurs, rubs, or gallops. Chest: Clear to auscultation bilaterally. Good air entry. No wheezes, rales, or rhonchi. Abdomen: Soft, nondistended, nontender. Normoactive bowel sounds x4 quadrants. Extremities: No cyanosis, clubbing. No edema. Psychiatric: No active psychosis, depression, suicidal or homicidal ideations. Skin: Warm to touch. TIME SPENT: The total time spent evaluating the patient, reviewing pertinent data, and appropriate documentation is 40 minutes. [id number]/[facility] #: [id number] STEPHANIE
== END 2018-02-07 15:20 | disposition home or self-care (01) | DRG 440 ==
LOC: ED 20:14 → MED 02-05 01:23
PROVIDERS: ADMIT Hospitalist; ATTEND Student in an Organized Health Care Education/Training Program
DX: K85.00 Idiopathic acute pancreatitis without necrosis or infection (principal); N83.201 Unspecified ovarian cyst, right side; D72.829 Elevated white blood cell count, unspecified; Z72.89 Other problems related to lifestyle
CPT/HCPCS: 36415; 74177; 76705; 80048; 80053; 80061; 81003; 83690; 84702; 85025; 85027; 85610; 85730; 99284; A9270-GY; J2270; J2405; Q9967

== ENCOUNTER 2018-03-03 17:32 | Inpatient (IN) | payer OTHER ==
--- NOTE | 2018-03-03 18:07 | ED ---
Abdominal Pain/Female - HPI Summary HPI Summary: The pt is a 22 y/o female with a hx of pancreatitis presenting to [facility] c/o waxing and waning abd pain since 2 days ago worsened today, She pain rated 4/10 in severity started after she consumed 3 alcoholic shots 3 days ago. She denies N/V/D, fever, body aches and chills. She was admitted for similar sx in January 2018. Home Medications Medication Instructions Recorded Confirmed Type NK [No Home Medications Reported] 03/03/18 03/03/18 History - History of Current Complaint Chief Complaint: EDAbdPain Stated Complaint: ABD PAIN Time Seen by Provider: 03/03/18 17:55 Hx Obtained From: Patient Onset/Duration: Lasting Days - 2 days, Still Present, Worse Since - Today Timing: Constant - Waxing and waning Severity Initially: Mild Severity Currently: Mild Pain Intensity: 4 Pain Scale Used: 0-10 Numeric Location: Epigastric Radiates: No Character: Sharp Aggravating Factor(s): Nothing, Other: - Recent EtOH consumption Alleviating Factor(s): Nothing Associated Signs and Symptoms: Positive: Negative - Body aches. Negative: Fever , Nausea, Vomiting, Diarrhea Allergies/Adverse Reactions: Allergies Allergy/AdvReac Type Severity Reaction Status Date / Time No Known Allergies Allergy Verified 02/04/18 21:19 Home Medications: Home Medications NK [No Home Medications Reported] 03/03/18 [History Confirmed 03/03/18] PMH/Surg Hx/FS Hx/Imm Hx Previously Healthy: No Endocrine/Hematology History: Denies: Hx Diabetes Cardiovascular History: Denies: Hx Hypercholesterolemia, Hx Hypertension GI History: Reports: Other GI Disorders - Pancreatitis History: Denies: Hx Kidney Stones Sensory History: Reports: Hx Contacts or Glasses Denies: Hx Legally Blind, Hx Deafness, Hx Hearing Aid Opthamlomology History: Reports: Hx Contacts or Glasses Denies: Hx Legally Blind - Cancer History Cancer Type, Location and Year: None reported - Surgical History Surgery Procedure, Year, and Place: None reported - Immunization History Date of Tetanus Vaccine: utd Date of Influenza Vaccine: none Infectious Disease History: No Infectious Disease History: Denies: Hx Clostridium Difficile, Hx of Known/Suspected MRSA, Traveled Outside the [place] in Last 30 Days - Family History Known Family History: Negative: Cardiac Disease, Hypertension, Diabetes, Blood Disorder - Social History Occupation: Student Lives: Dormitory/Roommates Alcohol Use: Occasionally Substance Use Type: Reports: None Smoking Status (MU): Never Smoked Tobacco Review of Systems Constitutional: Negative - Body aches Negative: Fever, Chills Positive: Abdominal Pain. Negative: Vomiting, Diarrhea, Nausea Positive: no symptoms reported All Other Systems Reviewed And Are Negative: Yes Physical Exam - Summary Physical Exam Summary: Appearance: The patient is well-nourished in no acute distress and in no acute pain. Skin: The skin is warm and dry and skin color reflects adequate perfusion. HEENT: The head is normocephalic and atraumatic. The pupils are equal and reactive. The conjunctivae are clear and without drainage. Nares are patent and without drainage. Mouth reveals moist mucous membranes and the throat is without erythema and exudate. The external ears are intact. The ear canals are patent and without drainage. The tympanic membranes are intact. Neck: The neck is supple with full range of motion and non-tender. There are no carotid bruits. There is no neck vein distension. Respiratory: Chest is non-tender. Lungs are clear to auscultation and breath sounds are symmetrical and equal. Cardiovascular: Heart is regular rate and rhythm. There is no murmur or rub auscultated. There is no peripheral edema and pulses are symmetrical and equal. Abdomen: The abdomen is soft and tender in the epigastric. There are normal bowel sounds heard in all four quadrants and there is no organomegaly palpated. Musculoskeletal: There is no back tenderness noted. Extremities are non-tender with full range of motion. There is good capillary refill. There is no peripheral edema or calf tenderness elicited. Neurological: Patient is alert and oriented to person, place and time. The patient has symmetrical motor strength in all four extremities. Cranial nerves are grossly intact. Deep tendon reflexes are symmetrical and equal in all four extremities. Psychiatric: The patient has an appropriate affect and does not exhibit any anxiety or depression. Triage Information Reviewed: Yes Vital Signs On Initial Exam: Initial Vitals Temp Pulse Resp BP Pulse Ox 97.9 F 92 16 119/78 98 03/03/18 17:35 03/03/18 17:35 03/03/18 17:35 03/03/18 17:35 03/03/18 17:35 Vital Signs Reviewed: Yes Diagnostics - Vital Signs Vital Signs Temp Pulse Resp BP Pulse Ox 03/03/18 17:35 97.9 F 92 16 119/78 98 - Laboratory Result Diagrams: 03/03/18 18:15 03/03/18 18:15 Lab Statement: Any lab studies that have been ordered have been reviewed, and results considered in the medical decision making process. Abdominal Pain Fem Course/Dx - Course Course Of Treatment: Ms. Diggs presented concerned that she was developing pancreatitis again. She drinks some alcohol over the holiday and hasn't felt well since with gradually increasing epigastric pain. She was nontoxic in appearance with stable vital signs on arrival. Labs revealed that her lipase was over 5000. She was given IV fluids and admitted by the hospitalist service. - Diagnoses Provider Diagnoses: Pancreatitis - Provider Notifications Discussed Care Of Patient With: Argenis Ochoa - Hospitalist Time Discussed With Above Provider: 20:30 Instructed by Provider To: Admit As Inpatient - Critical Care Time Critical Care Time: 30-74 min Discharge - Sign-Out/Discharge Documenting (check all that apply): Patient Departure - Admit - Discharge Plan Condition: Stable Disposition: ADMITTED TO [facility] - Billing Disposition and Condition Condition: STABLE Disposition: Admitted to [facility] - Attestation Statements Document Initiated by Scribe: Yes Documenting Scribe: Rut Hi Provider For Whom Josibjosesito is Documenting (Include Credential): Dr. Dayo Colon MD Scribe Attestation: Rut Patten , scribed for Dr. Dayo Colon MD on 03/03/18 at 2136. Scribe Documentation Reviewed: Yes Provider Attestation: The documentation as recorded by the scribRut bellamy accurately reflects the service I personally performed and the decisions made by me, Dr. Dayo Colon MD
[2018-03-03 18:38] LABS: ABS Basophils 0 10^3/ul (0-0.2); ABS Eosinophils 0.1 10^3/ul (0-0.6); ABS Lymphocytes 1.5 10^3/ul (1.0-4.8); ABS Monocytes 0.5 10^3/ul (0-0.8); ABS Neutrophils 6.3 10^3/ul (1.5-7.7); ABS Nucleated RBC 0 10^3/ul; Eosinophil % 1.5 %; Hematocrit 39 % (35-47); Hemoglobin 13.3 g/dl (12.0-16.0); Lymphocyte % 17.8 %; Mean Corpuscular HGB Conc 34 g/dl (31-36); Mean Corpuscular Hemoglobin 32 pg (27-31); Mean Corpuscular Volume 95 fL (80-97); Nucleated Red Blood Cells % 0; Platelet Count 240 10^3/ul (150-450); Red Blood Count 4.14 10^6/ul (4.00-5.40); Red Cell Distribution Width 13 % (10.5-15); White Blood Count 8.5 10^3/ul (3.5-10.8)
[2018-03-03 18:50] LABS: EGFR Non-African American 126.2 (>60)
[2018-03-03] MEDS ORDERED: Ondansetron INJ* 2 MG/ML VIAL IV ONE (20:30)
[2018-03-03] MEDS ORDERED: HYDROmorphone INJ1* 1 MG/ML SYRINGE IV SLOW PU ONE (20:30)
[2018-03-03] MEDS ORDERED: NS 0.9% 1000 ML* 1,000 ML IV ONE (20:30)
[2018-03-03] MEDS ORDERED: Morphine VIAL* 4 MG/ML VIAL (1 ml vial) IV PRN (20:56)
[2018-03-03] MEDS ORDERED: Ondansetron INJ* 2 MG/ML VIAL IV PRN (20:56)
[2018-03-03] MEDS ORDERED: Potassium Chlor TAB* 20 MEQ TAB.ER PO ONE (22:42)
[2018-03-03] MEDS: KCL 10 MEQ/50 ML IVPREMIX* 10 MEQ/50 ML BAG IV SCH ×2 (22:44→22:45)
--- NOTE | 2018-03-04 01:50 | HP ---
CC: [facility] * HISTORY AND PHYSICAL: DATE OF ADMISSION: 03/03/18 PRIMARY CARE PROVIDER: [facility]. ATTENDING PHYSICIAN WHILE IN THE HOSPITAL: Argenis Ochoa MD * (report dictated by Susi Capellan NP). CHIEF COMPLAINT: Epigastric pain. HISTORY OF PRESENTING ILLNESS: Ms. Diggs is a 22-year-old female patient who has had pancreatitis previously, who was here about 3 weeks ago, diagnosed with pancreatitis unclear cause, she resolved, was discharged with a followup with outpatient GI. Unfortunately, she said last on the , she did drink 3 shots and then on her way back home to [place] over the weekend, she said that she was having more pain in the epigastric area. I asked her what she had done this weekend, she said she was in [facility] with friends and I asked her if she had been drinking while in [place] and she said yes that she had drank over the weekend after I asked her a second time, so really she drank on and presumably Saturday and maybe Saturday as well, who started having epigastric pain. No nausea or vomiting. Pain worse with eating. She was concerned because the symptoms felt like her previous pancreatitis, just not as bad, so she decided to come into the ER today. She denies any fevers or chills, denies any abdominal distention, denies having any chest pain or shortness of breath, denies having any other abdominal pain. There was no coffee-ground emesis and no melena was reported. She came into the ED and it was noted that her lipase was 5000. PAST MEDICAL HISTORY: Significant for pancreatitis. PAST SURGICAL HISTORY: Denied. HOME MEDICATIONS: Denied. ALLERGIES TO MEDICATIONS: Include no known drug allergies. FAMILY HISTORY: She states both the parents are healthy. SOCIAL HISTORY: She does drink alcohol; when asked how often, she does state that she drinks at least weekly and when she does drink, it is 3 shots at least. She is a [employer] student studying [employer]. Denies recreational drug abuse. Surrogate decision maker is her mother. REVIEW OF SYSTEMS: There is no documented fever. She denied having any significant weight change. There is no double vision. She denies having any ear discharge. There was no rhinorrhea. There was no sore throat. No thyroid enlargement. She denies having any chest pain. There was no orthopnea. No nocturnal dyspnea. She admits to epigastric pain. There was no nausea. There was no vomiting. No dysuria, no frequency. No seizure, no loss of consciousness. No pruritus and no skin ulcerations. Review of 14 systems completed, all others were negative. PHYSICAL EXAMINATION GENERAL: At this time, Ms. Diggs is a 22-year-old female patient. She appears to be well nourished, well developed. She is sitting in the ED stretcher. She does not appear to be in any acute distress. VITAL SIGNS: Blood pressure 119/78, pulse 92, respirations 16, O2 sat 98%, temperature 97.9. HEENT: Head atraumatic and normocephalic. Eyes: EOMs are intact. Sclerae anicteric and not pale. Throat: Oral mucosa appears to be moist. No oropharyngeal erythema. NECK: Supple. LUNGS: Clear to auscultation bilaterally. No wheezes, rales, or rhonchi. HEART: Sounds S1, S2. Regular rate and rhythm. No murmurs, rubs, or gallops. ABDOMEN: Soft, it was flat. There was tenderness in the epigastric area. EXTREMITIES: Pulses were 2+ throughout. She is moving all 4 extremities with 5 /5 strength. NEUROLOGICAL: She is awake, alert, and oriented x3. Tongue was midline. Setter Helper were equal. She had no gross focal deficits. SKIN: Intact. LABORATORY DATA/DIAGNOSTIC STUDIES: WBC of 8.5, RBC of 4.14, hemoglobin of 13.3, hematocrit of 39, and a platelet count of 240,000. The sodium was 139, potassium 3.4, chloride of 107, bicarb of 25, BUN 13, creatinine 0.60, glucose 102, calcium 9.3. Total bili 0.3, AST 12, ALT 10, alk phos 49. Albumin 4.3. Her lipase was 5011 and beta HCG was negative. Old medical records were reviewed. ASSESSMENT AND PLAN: Ms. Diggs is a 22-year-old female patient coming into the ED today with complaints of epigastric pain, found to have pancreatitis. She will be admitted on observation status for: 1. Pancreatitis. I suspect this is probably secondary to alcohol use. She is not very forthcoming. Again, when asking her a second time she did state that she drank over the weekend after she had originally told me she only drank on . I explained to her to abstain from alcohol. I explained to her the risk of recurrent pancreatitis. My plan at this point is to keep her n.p.o. except ice chips, normal saline at 175 an hour, repeat her LFTs in the morning. If she deteriorates, we will certainly get imaging. She just had a CT the last time she was here less than a month ago and we will continue to follow. I will add on an alcohol level as well and we will continue to follow her closely. May need to consider GI input again. She is supposedly supposed to be following up with outpatient GI. 2. DVT prophylaxis. I have put her on SCDs. 3. Code status. Full code. 4. Fluids, electrolytes, and nutrition. Again, n.p.o. She does have low potassium, I will replace this. I am checking a magnesium and we will continue with IV hydration and ice chips for diet. TIME SPENT: On the admission was 60 minutes; greater than half the time was spent [id number] with the patient obtaining my history and physical; other half of the time was spent going over the plan of care with the patient and implementing the plan of care. I did discuss the plan of care with my attending, Dr. Ochoa; she is in agreement. SUSI CAPELLAN NP [id number]/[facility] #: [id number] STEPHANIE
[2018-03-04 09:16] LABS: ABS Basophils 0 10^3/ul (0-0.2); ABS Eosinophils 0.1 10^3/ul (0-0.6); ABS Lymphocytes 1.3 10^3/ul (1.0-4.8); ABS Monocytes 0.3 10^3/ul (0-0.8); ABS Nucleated RBC 0 10^3/ul; Eosinophil % 1.5 %; Hematocrit 37 % (35-47); Hemoglobin 12.4 g/dl (12.0-16.0); Lymphocyte % 22.8 %; Mean Corpuscular HGB Conc 33 g/dl (31-36); Mean Corpuscular Hemoglobin 32 pg (27-31); Mean Corpuscular Volume 96 fL (80-97); Mean Platelet Volume 7.8 fL (7.4-10.4); Nucleated Red Blood Cells % 0.2; Platelet Count 213 10^3/ul (150-450); Red Blood Count 3.87 10^6/ul (4.00-5.40); Red Cell Distribution Width 12 % (10.5-15); White Blood Count 5.7 10^3/ul (3.5-10.8)
[2018-03-04 09:20] LABS: INR 1.08 (0.77-1.02)
[2018-03-04 09:33] LABS: EGFR Non-African American 175.9 (>60)
--- NOTE | 2018-03-04 13:01 | PN ---
Subjective Date of Service: 03/04/18 Interval History: Pt resting comfortably in bed. Reports abdominal pain has resolved and has not required any pain medication since last night. Denies nausea or vomiting, bloating or distension. Reports being slightly hungry and is requesting some liquids. Objective Active Medications: Sodium Chloride (Ns 0.9% 1000 Ml*) 1,000 mls @ 175 mls/hr IV PER RATE BUCK Morphine Sulfate (Morphine Vial*) 2 mg IV Q4H PRN PRN Reason: PAIN - MILD Last Admin: 03/03/18 22:56 Dose: 2 mg Ondansetron HCl (Zofran Inj*) 4 mg IV Q6H PRN PRN Reason: NAUSEA Oxygen Devices in Use Now: None Eyes: No Scleral Icterus, PERRLA Ears/Nose/Mouth/Throat: NL Teeth, Lips, Gums, Mucous Membranes Moist Neck: NL Appearance and Movements; NL JVP Respiratory: Symmetrical Chest Expansion and Respiratory Effort, Clear to Auscultation Cardiovascular: NL Sounds; No Murmurs; No JVD, RRR, No Edema Abdominal: NL Sounds; No Tenderness; No Distention Extremities: No Edema, No Clubbing, Cyanosis Skin: No Rash or Ulcers Neurological: Alert and Oriented x 3 Lines/Tubes/Other Access: Clean, Dry and Intact Peripheral IV Result Diagrams: 03/04/18 09:00 03/04/18 09:00 Assess/Plan/Problems-Billing Assessment: 22 year old female with hx pancreatitis 3 weeks ago presented to ED with epigastric pain after drinking alcohol over the weekend, lipase 5011, admitted with pancreatitis. - Patient Problems (1) Pancreatitis Current Visit: No Status: Acute Code(s): K85.90 - ACUTE PANCREATITIS WITHOUT NECROSIS OR INFECTION, UNSP SNOMED Code(s): 75609591 Comment: - Afebrile without leukocytosis on presentation. Epigastric pain has resolved and has not required pain meds since last night. No N/V. Requesting clears. Will advance diet from NPO to clears and see how she tolerates. - Lipase trending down. 4146 today from 5011 yesterday. Lipase 1349 today - Cont IV fluids and IV pain medication - Had CT and U/S without evidence of gallstones on last admission. Can consider repeat imaging if pt experiences worsening symtpoms. - Seen by Dr. Oliver Islas on last admission, who recommended seeing her as an outpatient for additional workup (EUS vs MRCP) and possible genetic testing. Patient was not aware she was supposed to follow up with GI here and thought she was going to go to [place] for more tests, but she never heard from anyone. Will reach out to GI to see if they would like to evaluate her here or as outpatient. - On last visit GI suspected ideopathic vs alcohol vs gallstones in etiology. Chart review revealed ED visit in 2016 for ETOH, so possible patient is under- reporting her ETOH use. Pt reported to me that she drinks alcohol about 1x per week, about 3 shots worth. (2) DVT prophylaxis Current Visit: Yes Status: Acute Code(s): [id number] - SNOMED Code(s): 106370319 Comment: - SCDs and ambulation (3) Full code status Current Visit: No Status: Acute Code(s): Z78.9 - OTHER SPECIFIED HEALTH STATUS SNOMED Code(s): 204585119 Comment: - Full Code Status and Disposition: Inpatient. Anticipate discharge to home when medically stable.
[2018-03-04] MEDS: NS 0.9% 1000 ML* 1,000 ML IV SCH (16:10)
[2018-03-05 06:42] LABS: Hematocrit 33 % (35-47); Hemoglobin 11.1 g/dl (12.0-16.0); Mean Corpuscular HGB Conc 34 g/dl (31-36); Mean Corpuscular Hemoglobin 33 pg (27-31); Mean Corpuscular Volume 96 fL (80-97); Mean Platelet Volume 7.9 fL (7.4-10.4); Platelet Count 193 10^3/ul (150-450); Red Cell Distribution Width 13 % (10.5-15); White Blood Count 5.5 10^3/ul (3.5-10.8)
[2018-03-05 07:00] LABS: EGFR Non-African American 243.1 (>60)
--- NOTE | 2018-03-05 09:48 | PN ---
Subjective Date of Service: 03/05/18 Interval History: Patient resting comfortably in bed without complaint. Pt denies any significant abdominal pain and has not required any pain medication. Does endorse mild discomfort similar to how she felt yesterday. Has tolerated clear liquid diet without increased pain or nausea/vomiting. Feels she is ready to try solid food today. Objective Active Medications: Sodium Chloride (Ns 0.9% 1000 Ml*) 1,000 mls @ 175 mls/hr IV PER RATE BUCK Last Admin: 03/04/18 16:10 Dose: 175 mls/hr Morphine Sulfate (Morphine Vial*) 2 mg IV Q4H PRN PRN Reason: PAIN - MILD Last Admin: 03/03/18 22:56 Dose: 2 mg Ondansetron HCl (Zofran Inj*) 4 mg IV Q6H PRN PRN Reason: NAUSEA Vital Signs - 8 hr 03/05/18 03/05/18 03/05/18 04:21 07:39 08:00 Temperature 97.9 F 97.6 F Pulse Rate 77 77 Respiratory 18 16 16 Rate Blood Pressure 98/54 96/51 (mmHg) O2 Sat by Pulse 99 99 Oximetry Oxygen Devices in Use Now: None Eyes: No Scleral Icterus, PERRLA Ears/Nose/Mouth/Throat: NL Teeth, Lips, Gums, Mucous Membranes Moist Neck: NL Appearance and Movements; NL JVP, Trachea Midline Respiratory: Symmetrical Chest Expansion and Respiratory Effort, Clear to Auscultation Cardiovascular: NL Sounds; No Murmurs; No JVD, RRR, No Edema Abdominal: - - No abdominal distention. Mild epigastric tenderness to deep palpation. No rebound or guarding. Bowel sounds WNL. Extremities: No Edema, No Clubbing, Cyanosis Skin: No Rash or Ulcers, No Nodules or Sclerosis Neurological: Alert and Oriented x 3, NL Sensation, NL Muscle Strength and Tone Lines/Tubes/Other Access: Clean, Dry and Intact Peripheral IV Result Diagrams: 03/05/18 06:12 03/05/18 06:12 Assess/Plan/Problems-Billing Assessment: 22 year old female with hx pancreatitis 3 weeks ago presented to ED with epigastric pain after drinking alcohol over the weekend, lipase 5011, admitted with pancreatitis. - Patient Problems (1) Pancreatitis Current Visit: No Status: Acute Code(s): K85.90 - ACUTE PANCREATITIS WITHOUT NECROSIS OR INFECTION, UNSP SNOMED Code(s): 98407833 Comment: - Epigastric pain has resolved and has not required pain meds since initial presentation. No N/V with clear diet. Will advance today to low fat/low residue diet - Continues to be afebrile without leukocytosis. - Lipase trending down. 2201 today from 4146 yesterday. - Cont IV fluids and IV pain medication PRN - Seen by Dr. Oliver Islas on last admission, who recommended seeing her as an outpatient for additional workup (EUS vs MRCP) and possible genetic testing, but pt did not follow up - Had CT and U/S without evidence of gallstones on last admission. Discussed with Dr. Costello and will order MRCP to evaluate anatomy in light of recurrent pancreatitis in young patient. NPO after midnight for testing. - On last visit GI suspected ideopathic vs alcohol vs gallstones in etiology (2) DVT prophylaxis Current Visit: Yes Status: Acute Code(s): [id number] - SNOMED Code(s): 283386581 Comment: - SCDs and ambulation (3) Full code status Current Visit: No Status: Acute Code(s): Z78.9 - OTHER SPECIFIED HEALTH STATUS SNOMED Code(s): 212954020 Comment: - Full Code Status and Disposition: Inpatient. Anticipate discharge to home when medically stable.
[2018-03-05] MEDS: NS 0.9% 1000 ML* 1,000 ML IV SCH ×2 (10:55→22:41)
[2018-03-05 19:11] LABS: EGFR Non-African American 185.4 (>60)
[2018-03-05] MEDS ORDERED: KCL 20 MEQ/100 ML IVPREMIX* 20 MEQ/100 ML BAG IV ONE (22:00)
[2018-03-06] MEDS: NS 0.9% 1000 ML* 1,000 ML IV SCH ×4 (04:24→22:10)
[2018-03-06 08:14] LABS: ABS Basophils 0 10^3/ul (0-0.2); ABS Eosinophils 0.2 10^3/ul (0-0.6); ABS Lymphocytes 2.4 10^3/ul (1.0-4.8); ABS Monocytes 0.4 10^3/ul (0-0.8); ABS Neutrophils 2.1 10^3/ul (1.5-7.7); ABS Nucleated RBC 0 10^3/ul; Eosinophil % 4.6 %; Hematocrit 35 % (35-47); Hemoglobin 11.8 g/dl (12.0-16.0); Lymphocyte % 45.8 %; Mean Corpuscular HGB Conc 33 g/dl (31-36); Mean Corpuscular Hemoglobin 32 pg (27-31); Mean Corpuscular Volume 95 fL (80-97); Mean Platelet Volume 8.1 fL (7.4-10.4); Nucleated Red Blood Cells % 0.2; Platelet Count 204 10^3/ul (150-450); Red Blood Count 3.72 10^6/ul (4.00-5.40); Red Cell Distribution Width 12 % (10.5-15); White Blood Count 5.1 10^3/ul (3.5-10.8)
[2018-03-06 08:46] LABS: EGFR Non-African American 207.5 (>60)
--- NOTE | 2018-03-06 11:48 | PN ---
Subjective Date of Service: 03/06/18 Interval History: Pt resting comfortably in bed. Says when she's at rest she has no abdominal pain or discomfort, but has 3/10 aching epigastric pain when she walks. Says she had some discomfort yesterday with eating, but no pain and no nausea/ vomiting. Denies bloating or abdominal distension. Denies chest pain, shortness of breath, headache, dizziness. Objective Active Medications: Sodium Chloride (Ns 0.9% 1000 Ml*) 1,000 mls @ 175 mls/hr IV PER RATE BUCK Last Admin: 03/06/18 10:43 Dose: 175 mls/hr Morphine Sulfate (Morphine Vial*) 2 mg IV Q4H PRN PRN Reason: PAIN - MILD Last Admin: 03/03/18 22:56 Dose: 2 mg Ondansetron HCl (Zofran Inj*) 4 mg IV Q6H PRN PRN Reason: NAUSEA Vital Signs - 8 hr 03/06/18 03/06/18 03/06/18 07:10 08:00 11:08 Temperature 98.0 F 98.2 F Pulse Rate 66 69 Respiratory 16 16 16 Rate Blood Pressure 98/67 107/58 (mmHg) O2 Sat by Pulse 100 100 Oximetry Oxygen Devices in Use Now: None Eyes: No Scleral Icterus, PERRLA Ears/Nose/Mouth/Throat: NL Teeth, Lips, Gums, Mucous Membranes Moist Neck: NL Appearance and Movements; NL JVP, Trachea Midline Respiratory: Symmetrical Chest Expansion and Respiratory Effort, Clear to Auscultation Cardiovascular: NL Sounds; No Murmurs; No JVD, RRR, No Edema Abdominal: - - NL sounds; No distention. Mild tenderness to palpation in epigastric region. No rebound or gaurding. Extremities: No Edema, No Clubbing, Cyanosis Skin: No Rash or Ulcers Neurological: Alert and Oriented x 3, NL Muscle Strength and Tone Lines/Tubes/Other Access: Clean, Dry and Intact Peripheral IV Result Diagrams: 03/06/18 07:43 03/06/18 07:43 Assess/Plan/Problems-Billing Assessment: 22 year old female with hx pancreatitis 3 weeks ago presented to ED with epigastric pain after drinking alcohol over the weekend, lipase 5011, admitted with pancreatitis. - Patient Problems (1) Pancreatitis Current Visit: No Status: Acute Code(s): K85.90 - ACUTE PANCREATITIS WITHOUT NECROSIS OR INFECTION, UNSP SNOMED Code(s): 55396958 Comment: - MRCP negative. Spoke to Dr Lopez who says she will likely still need EUS as an outpatient - Epigastric pain has resolved at rest, 3/10 whie walking and has not required pain meds since initial presentation. Tolerated clear diet, then advanced to low fat/low residual - Continues to be afebrile without leukocytosis. - Lipase trending down, but only minimally. 2055 today from 2200 - Cont IV fluids and IV pain medication PRN - Seen by Dr. Oliver Islas on last admission, who recommended seeing her as an outpatient for additional workup (EUS vs MRCP) and possible genetic testing, but pt did not follow up - Had CT and U/S without evidence of gallstones on last admission - On last visit GI suspected ideopathic vs alcohol vs gallstones in etiology (2) DVT prophylaxis Current Visit: Yes Status: Acute Code(s): [id number] - SNOMED Code(s): 071611063 Comment: - SCDs and ambulation (3) Full code status Current Visit: No Status: Acute Code(s): Z78.9 - OTHER SPECIFIED HEALTH STATUS SNOMED Code(s): 906960335 Comment: - Full Code Status and Disposition: Inpatient. Anticipate discharge to home when medically stable.
[2018-03-06] MEDS ORDERED: Lidocaine 2% VISCOUS* 15 ML UDC PO ONE (20:29)
[2018-03-06] MEDS ORDERED: Al Hydrox/Mg Hydrox/Simet LIQ* 30 ML UDC PO ONE (20:29)
[2018-03-07] MEDS: NS 0.9% 1000 ML* 1,000 ML IV SCH ×4 (03:50→21:10)
[2018-03-07 06:01] LABS: ABS Basophils 0 10^3/ul (0-0.2); ABS Eosinophils 0.2 10^3/ul (0-0.6); ABS Lymphocytes 2.1 10^3/ul (1.0-4.8); ABS Monocytes 0.4 10^3/ul (0-0.8); ABS Neutrophils 2.6 10^3/ul (1.5-7.7); ABS Nucleated RBC 0 10^3/ul; Eosinophil % 3.4 %; Hematocrit 36 % (35-47); Lymphocyte % 39.2 %; Mean Corpuscular HGB Conc 34 g/dl (31-36); Mean Corpuscular Hemoglobin 32 pg (27-31); Mean Corpuscular Volume 95 fL (80-97); Mean Platelet Volume 7.4 fL (7.4-10.4); Nucleated Red Blood Cells % 0.1; Platelet Count 234 10^3/ul (150-450); Red Blood Count 3.78 10^6/ul (4.00-5.40); Red Cell Distribution Width 12 % (10.5-15); White Blood Count 5.2 10^3/ul (3.5-10.8)
[2018-03-07 06:19] LABS: EGFR Non-African American 235.1 (>60)
[2018-03-07] MEDS ORDERED: Magnesium Hydroxide LIQ* 30 ML UDC PO ONE (10:56)
--- NOTE | 2018-03-07 13:22 | PN ---
Subjective Date of Service: 03/07/18 Interval History: Pt did not tolerate advancing diet to solids. Reports epigastric pain with eating and feeling like the food was getting stuck. Says pain persists on and off for a while. Diet was put back to clears, which she has been tolerating better, but still does have some epigastric discomfort even with jello. Says she does not feel like she is hungry. Still requiring IVF. Objective Active Medications: Sodium Chloride (Ns 0.9% 1000 Ml*) 1,000 mls @ 175 mls/hr IV PER RATE BUCK Last Admin: 03/07/18 09:15 Dose: 175 mls/hr Morphine Sulfate (Morphine Vial*) 2 mg IV Q4H PRN PRN Reason: PAIN - MILD Last Admin: 03/03/18 22:56 Dose: 2 mg Ondansetron HCl (Zofran Inj*) 4 mg IV Q6H PRN PRN Reason: NAUSEA Vital Signs - 8 hr 03/07/18 03/07/18 07:39 11:16 Temperature 97.6 F 97.7 F Pulse Rate 71 79 Respiratory 16 16 Rate Blood Pressure 111/71 99/62 (mmHg) O2 Sat by Pulse 99 100 Oximetry Oxygen Devices in Use Now: None Eyes: No Scleral Icterus, PERRLA Ears/Nose/Mouth/Throat: NL Teeth, Lips, Gums Neck: NL Appearance and Movements; NL JVP Respiratory: Symmetrical Chest Expansion and Respiratory Effort, Clear to Auscultation Cardiovascular: NL Sounds; No Murmurs; No JVD, RRR, No Edema Abdominal: - - Epigastric tenderness to palpation. No rebound or guarding. Normoactive bowel sounds. Abdomen soft and non-distended. Extremities: No Edema Skin: No Rash or Ulcers Neurological: Alert and Oriented x 3, NL Muscle Strength and Tone Result Diagrams: 03/07/18 05:48 03/07/18 05:48 Assess/Plan/Problems-Billing Assessment: 22 year old female with hx pancreatitis 3 weeks ago presented to ED with epigastric pain after drinking alcohol over the weekend, lipase 5011, admitted with pancreatitis. - Patient Problems (1) Pancreatitis Current Visit: No Status: Acute Code(s): K85.90 - ACUTE PANCREATITIS WITHOUT NECROSIS OR INFECTION, UNSP SNOMED Code(s): 45052193 Comment: - Initially tolerated clear diet, then advanced to low fat/low residual, but experienced pain with eating, lipase plateaued, and was put back on clears. Lipase is trending down, but still well above normal at 1139. Continue clears and plan to try to advance tomorrow. - Cont IV fluids and IV pain medication PRN. Will also add milk of magnesia as pt has not had bowel movement since [employer] and could be contributing to her pain/ discomfort. - MRCP negative. Spoke to Dr Lopez who says she will likely still need EUS as an outpatient - Will need outpatient f/u with Dr. Oliver Islas as was recommended on last admission (but pt did not follow up). I have made an appointment for her with Dr. Oliver Islas for 03/10 at 2:30pm (2) DVT prophylaxis Current Visit: Yes Status: Acute Code(s): [id number] - SNOMED Code(s): 293884976 Comment: - SCDs and ambulation (3) Full code status Current Visit: No Status: Acute Code(s): Z78.9 - OTHER SPECIFIED HEALTH STATUS SNOMED Code(s): 129831022 Comment: - Full Code Status and Disposition: Inpatient. Anticipate discharge to home when medically stable. Will require follow-up with Katherine as well as Dr. Oliver Islas. I have made an appointment with for her with Dr. Oliver Islas on 03/10/2018 at 2:30pm. Pt is leaving town on 03/22 for [facility], then going home to [place] on 04/04.
[2018-03-08] MEDS: NS 0.9% 1000 ML* 1,000 ML IV SCH ×4 (02:58→19:50)
[2018-03-08 07:56] LABS: ABS Basophils 0 10^3/ul (0-0.2); ABS Eosinophils 0.1 10^3/ul (0-0.6); ABS Monocytes 0.3 10^3/ul (0-0.8); ABS Neutrophils 2.7 10^3/ul (1.5-7.7); ABS Nucleated RBC 0 10^3/ul; Eosinophil % 2.7 %; Hematocrit 38 % (35-47); Hemoglobin 12.7 g/dl (12.0-16.0); Lymphocyte % 38.7 %; Mean Corpuscular HGB Conc 34 g/dl (31-36); Mean Corpuscular Hemoglobin 32 pg (27-31); Mean Corpuscular Volume 95 fL (80-97); Nucleated Red Blood Cells % 0.2; Platelet Count 248 10^3/ul (150-450); Red Blood Count 3.97 10^6/ul (4.00-5.40); Red Cell Distribution Width 12 % (10.5-15); White Blood Count 5.2 10^3/ul (3.5-10.8)
[2018-03-08 08:14] LABS: EGFR Non-African American 201.5 (>60)
--- NOTE | 2018-03-08 13:54 | PN ---
Subjective Date of Service: 03/08/18 Interval History: Pt seen and examined. Meds and labs reviewed. Pt mentions she tolerates clears w/o N/V or abd pain. CC: N/A ROS: Denied REDDY/dizziness, F/C, N/V, CP, SOB, increased cough, sputum production , abd pain, diarrhea, constipation, dysuria, myalgias, arthralgias, throat pain , and new skin lesions. The rest of the 14 point ROS are unremarkable. PHYSICAL EXAM: GEN APPEARANCE: Awake, not in acute distress HEENT: NC/AT, PERRLA, moist oral mucosa, (-) throat erythema NECK: Soft, supple, (-) cervical LAD, (-)JVD HEART: S1S2 WNL, RRR, No MRG CHEST: CTA, BL, GAE, No W/R/R ABD: Soft, ND/NT, NABS 4x Q EXT: No C/C/E SKIN: Warm to touch PSYCH: No active psychosis, hallucinations, depression, SI/HI Objective Active Medications: Sodium Chloride (Ns 0.9% 1000 Ml*) 1,000 mls @ 250 mls/hr IV PER RATE BUCK Morphine Sulfate (Morphine Vial*) 2 mg IV Q4H PRN PRN Reason: PAIN - MILD Last Admin: 03/03/18 22:56 Dose: 2 mg Ondansetron HCl (Zofran Inj*) 4 mg IV Q6H PRN PRN Reason: NAUSEA Vital Signs - 8 hr 03/08/18 03/08/18 07:24 08:00 Temperature 97.6 F Pulse Rate 87 Respiratory 18 14 Rate Blood Pressure 107/69 (mmHg) O2 Sat by Pulse 98 Oximetry Oxygen Devices in Use Now: None Result Diagrams: 03/08/18 07:40 03/08/18 07:40 Assess/Plan/Problems-Billing Assessment: 22 year old female with hx pancreatitis 3 weeks ago presented to ED with epigastric pain after drinking alcohol over the weekend, lipase 5011, admitted with pancreatitis. - Patient Problems (1) Pancreatitis Current Visit: No Status: Acute Code(s): K85.90 - ACUTE PANCREATITIS WITHOUT NECROSIS OR INFECTION, UNSP SNOMED Code(s): 52575245 Comment: -Despite slightly increased lipase, will advance diet given improvement of symptoms -Increase IVF rate to 250 cc/hr---pt young w/no medical issues and concerns for congestion -Continue PRN pain meds -Continue to follow Amylase and lipase in AM - MRCP negative. Ms. Craig spoke w/Dr Lopez who said she will likely still need EUS as an outpatient - Will need outpatient f/u with Dr. Oliver Islas as was recommended on last admission (but pt did not follow up). Ms. Craig an appointment for her with Dr. Oliver Islas for 03/10 at 2:30pm (2) DVT prophylaxis Current Visit: Yes Status: Acute Code(s): [id number] - SNOMED Code(s): [id number] Comment: - SCDs and ambulation Status and Disposition: Inpatient. Anticipate discharge to home when medically stable. Will require follow-up with Katherine as well as Dr. Oliver Islas. Ms. Craig has made an appointment with for her with Dr. Oliver Islas on 03/10/2018 at 2:30pm. Pt is leaving town on 03/22 for [facility], then going home to [place] on 04/04.
[2018-03-08] MEDS: LORazepam TAB(*) 0.5 MG PO SCH ×2 (15:09→21:59)
[2018-03-08] MEDS ORDERED: LORazepam TAB(*) 0.5 MG PO SCH (21:00)
[2018-03-09] MEDS: NS 0.9% 1000 ML* 1,000 ML IV SCH ×3 (00:56→07:48)
[2018-03-09 07:10] LABS: ABS Basophils 0 10^3/ul (0-0.2); ABS Eosinophils 0.1 10^3/ul (0-0.6); ABS Monocytes 0.3 10^3/ul (0-0.8); ABS Nucleated RBC 0 10^3/ul; Eosinophil % 2.1 %; Hematocrit 39 % (35-47); Hemoglobin 13.1 g/dl (12.0-16.0); Lymphocyte % 36.2 %; Mean Corpuscular HGB Conc 34 g/dl (31-36); Mean Corpuscular Hemoglobin 32 pg (27-31); Mean Corpuscular Volume 95 fL (80-97); Mean Platelet Volume 7.8 fL (7.4-10.4); Nucleated Red Blood Cells % 0.3; Platelet Count 260 10^3/ul (150-450); Red Blood Count 4.07 10^6/ul (4.00-5.40); Red Cell Distribution Width 12 % (10.5-15); White Blood Count 5.4 10^3/ul (3.5-10.8)
[2018-03-09 07:27] LABS: EGFR Non-African American 175.9 (>60)
[2018-03-09] MEDS: LORazepam TAB(*) 0.5 MG PO SCH (07:49)
[2018-03-09] MEDS ORDERED: Potassium Chlor TAB* 20 MEQ TAB.ER PO ONE (09:19)
[2018-03-09] MEDS ORDERED: Magnesium Sulfate IV* 3 GM in NS 0.9% 100 ML* 100 ML IVPB ONE (09:19)
[2018-03-09] MEDS ORDERED: Potassium Phosphate IV* 10 MMOLE in NS 0.9% 250 ML* 250 ML IVPB ONE (09:19)
[2018-03-09 18:14] VITALS: BP 115/80
--- NOTE | 2018-03-10 03:41 | DS ---
CC: Dr. Argenis Ochoa; Dr. Dayo Colon; [place], [place] * DISCHARGE SUMMARY: DATE OF ADMISSION: DATE OF DISCHARGE: 03/09/18 DISCHARGE DIAGNOSES: As follows: 1. Acute pancreatitis, idiopathic. DISCHARGE MEDICATIONS: As follows: 1. Tylenol 650 mg p.o. q.6 p.r.n. 2. Zofran 8 mg p.o. q.6 p.r.n. 3. Percocet 5/325 p.o. q.6 p.r.n., 12 tabs dispensed with 0 refills. HISTORY OF PRESENT ILLNESS/HOSPITAL COURSE: The patient is a 22-year-old lady who has had previous history of pancreatitis 3 weeks ago and she was diagnosed with pancreatitis of unclear cause and was subsequently discharged in GI followup, comes again with complaints of epigastric pain and was once again found to have acute pancreatitis of unknown etiology. Her presenting lipase level was 5011 and on discharge is only 590. She has tolerated her slow advancement of diet to now GI soft prior to her discharge and the patient is symptom free. During her admission, she had an MRCP done, which revealed an unremarkable MRCP with negative MR cholangiogram and significant interval resolution of pancreatic interstitial edema. Her fasting lipid levels were also found within goals, especially her triglycerides were found to be normal. She denied history of significant alcohol intake and/or any history of abuse. She had been advised to follow up and/or call her PCP within 3 days post discharge, and if her symptoms resume or develop new ones or feel unwell for any reason, she was advised to call her PCP first, and if her PCP cannot entertain her due to scheduling issues alone, she was advised to call [facility] if the issue is considered nonemergent. She was advised to call my office regarding any questions, concerns, or further clarifications regarding her discharge plans and her prescriptions and to take her medications as prescribed. She was advised to follow up with Dr. Dhaliwal on Saturday, 06/23, at 2:30 p.m. REVIEW OF SYSTEMS: On current review of systems, the patient currently denied any headache, dizziness, fevers, chills, nausea, vomiting, chest pain, shortness of breath, increased coughing or sputum production, abdominal pain, diarrhea, constipation, pain, and/or increased frequency on urination, myalgias , arthralgias, throat pain, or new skin lesions. The rest of the 14-point review of systems are otherwise unremarkable. PHYSICAL EXAMINATION: Shows a most recent vital signs of records with blood pressure of 127/79, 97.9 degrees Fahrenheit, 73 beats per minute heart rate, 16 per minute respiratory rate, saturating at 100% room air. General Appearance: The patient is awake, alert, and oriented x3. Not in acute distress. HEENT: Normocephalic, atraumatic. PERRLA. Extraocular muscles intact. Negative for icterus. Moist oral mucosa. Negative throat erythema. Neck: Soft, supple with no cervical lymphadenopathy. No JVD. Heart: S1, S2 within normal limits. Regular rate and rhythm. No murmurs, rubs, or gallops. Chest: Clear to auscultation bilaterally. Good air entry. No wheezes, rales, or rhonchi. Abdomen: Soft, nondistended, nontender. Normoactive bowel sounds x4 quadrants. Extremities: No cyanosis, clubbing, or edema. Psychiatric: No active psychosis, depression, suicidal or homicidal ideations. Skin: Warm to touch. TIME SPENT: The total time spent evaluating the patient, reviewing pertinent data, and appropriate documentation is 50 minutes. [id number]/[facility] #: [id number] STEPHANIE
== END 2018-03-09 19:30 | disposition home or self-care (01) | DRG 440 ==
LOC: ED 17:32 → MED 20:49
PROVIDERS: ADMIT Pediatrics; ATTEND Student in an Organized Health Care Education/Training Program
DX: K85.00 Idiopathic acute pancreatitis without necrosis or infection (principal); Z72.89 Other problems related to lifestyle
CPT/HCPCS: 36415; 74181; 76376; 80048; 80053; 80061; 80320; 82150; 83690; 83735; 84100; 84702; 85025; 85027; 85610; 99284; A9270-GY; G0480; J2270; J2405; J3475; J3480